=== PATIENT | female | born 1940 | race Two or more races ===

== ENCOUNTER 2022-05-28 15:03 | Inpatient (IN) | payer MEDICARE, OTHER ==
[~2022-05-28] VITALS: Ht 162.6 cm; Wt 82.3 kg
--- NOTE | 2022-05-28 15:13 | NUR ---
TECH AT BEDSIDE FOR EKG
--- NOTE | 2022-05-28 15:16 | NUR ---
PHLEB AT BEDSIDE FOR BLOOD DRAW
[2022-05-28] MEDS ORDERED: DULO20CA19 PO (15:42)
[2022-05-28] MEDS ORDERED: POLY15DR40 EACHEYE (15:42)
[2022-05-28] MEDS ORDERED: BISA10SU11 RC (15:42)
[2022-05-28] MEDS ORDERED: ACET1TAB23 PO (15:42)
[2022-05-28] MEDS ORDERED: ASPI-1420 PO (15:42)
[2022-05-28] MEDS ORDERED: MAGN400O6 PO (15:42)
[2022-05-28] MEDS ORDERED: GABA300C PO (15:42)
[2022-05-28] MEDS ORDERED: TURM500C9 PO (15:42)
[2022-05-28] MEDS ORDERED: CHOL100043 PO (15:42)
[2022-05-28] MEDS ORDERED: ATOR40TA PO (15:42)
[2022-05-28] MEDS ORDERED: AMLO-213 PO (15:42)
[2022-05-28] MEDS ORDERED: MULT-447 PO (15:42)
[2022-05-28] MEDS ORDERED: CARV3.122 PO (15:42)
[2022-05-28] MEDS ORDERED: SENN-261 PO (15:42)
[2022-05-28] MEDS ORDERED: DICL100G34 TD (15:42)
[2022-05-28] MEDS ORDERED: HYDR-3972 PO (15:42)
[2022-05-28] MEDS ORDERED: LOSA100T31 PO (15:42)
[2022-05-28] MEDS ORDERED: MAGN400T26 PO (15:42)
[2022-05-28] MEDS ORDERED: NITR0.4T48 SL (15:42)
[2022-05-28] MEDS ORDERED: ACET-868 PO (15:42)
[2022-05-28 15:45] LABS: BASOPHILS % (AUTO) 0.7 % (0.0-2.0); EOSINOPHILS % (AUTO) 3.5 % (0.0-6.0); HEMATOCRIT 44 % (33-45); HEMOGLOBIN 14.1 g/dL (11.5-14.8); LYMPHOCYTES # (AUTO) 1.5 K/uL (0.8-4.8); LYMPHOCYTES % (AUTO) 29.2 % (20.0-44.0); MEAN CORPUSCULAR HGB CONC 32 g/dl (31.0-36.0); MEAN CORPUSCULAR VOLUME 91 fL (82-100); MONOCYTES # (AUTO) 0.5 K/uL (0.1-1.30); NEUTROPHILS # (AUTO) 2.8 K/uL (1.8-8.9); NEUTROPHILS % (AUTO) 56.6 % (43.0-81.0); PLATELET COUNT (AUTO) 230 K/uL (150-450); RED BLOOD CELL COUNT(AUTO) 4.83 MIL/uL (4.0-5.2)
--- NOTE | 2022-05-28 15:58 | NUR ---
MOVE SHEET SUBMITTED.
[2022-05-28 16:02] LABS: CALCIUM, SERUM 9.3 mg/dL (8.5-10.1); CARBON DIOXIDE 28 mmol/L (21-32); CHLORIDE 105 mmol/L (98-107); CREATININE 0.9 mg/dL (0.6-1.3); GLUCOSE 149 mg/dL (74-106); POTASSIUM 3.3 mmol/L (3.5-5.1); SODIUM SERUM 140 mmol/L (136-145); UREA NITROGEN, BLOOD 22 mg/dL (7-18)
--- NOTE | 2022-05-28 16:09 | NUR ---
URINE SAMPLE COLLECTED AND SENT TO LAB
--- NOTE | 2022-05-28 16:34 | NUR ---
WINNIE HAMILTON DAUGHTER IN[facility] [phone]
[2022-05-28 16:53] LABS: BILIRUBIN,URINE NEGATIVE (NEGATIVE); COLOR,URINE YELLOW (YELLOW); LEUKOCYTE ESTERASE ,URINE NEGATIVE (NEGATIVE); NITRITE, URINE NEGATIVE (NEGATIVE); PH,URINE 6.5 (5.0-8.0); PROTEIN,URINE NEGATIVE (NEGATIVE); UGLUCOSE NEGATIVE (NEGATIVE); UROBILINOGEN,URINE 0.2 EU/dL (0.2)
[2022-05-28 17:43] LABS: BACTERIA,URINE 2+ /HPF (None Seen); SQUAMOUS EPITHELIAL CELL,UR Few /HPF (None Seen); WBC,URINE 0-2 /HPF (0-3)
[2022-05-28] MEDS ORDERED: BISACODYL SUPP (10 MG) 10 MG/SUPP.RECT SUPP.RECT RC PRN (18:00)
[2022-05-28] MEDS ORDERED: MAG HYDROX/AL HYDROX/SIMETH 30 ML UDC PO PRN (18:00)
[2022-05-28] MEDS ORDERED: POTASSIUM CHLORIDE 20 MEQ TAB.PRT.SR PO ONE ×2 (18:00→19:07)
[2022-05-28] MEDS ORDERED: ACETAMINOPHEN W/ CODEINE#3 1 EA TABLET PO PRN (18:00)
[2022-05-28] MEDS ORDERED: NITROGLYCERIN 0.4 MG/TAB BOTTLE SL PRN (18:00)
[2022-05-28] MEDS ORDERED: SENNOSIDES 8.6 MG TABLET PO PRN (18:00)
[2022-05-28] MEDS ORDERED: ONDANSETRON HCL/PF 4 MG/2 ML VIAL IVP PRN (18:00)
[2022-05-28] MEDS ORDERED: Z GUARD REMEDY 4 OZ OINT TP PRN (18:00)
[2022-05-28] MEDS ORDERED: HYDROCODONE/APAP 5/325MG TABLET PO PRN (18:00)
[2022-05-28] MEDS ORDERED: MAGNESIUM HYDROXIDE 30 ML UDC PO PRN ×2 (18:00)
[2022-05-28] MEDS ORDERED: ACETAMINOPHEN 325 MG TABLET PO PRN ×2 (18:00)
--- NOTE | 2022-05-28 18:21 | NUR ---
COVID SENT AND RESULTED
--- NOTE | 2022-05-28 19:08 | NUR ---
SMALLTALK DEVELOPER AT BEDSIDE
[2022-05-28 20:00] VITALS: BP 133/76
--- NOTE | 2022-05-28 20:20 | NUR ---
COMBINED RAIL OPERATOR NOTES RECEIVE PT FROM ER AWAKE AND ALERT X 2-3. ON ROOM AIR , NO SOB, NO SIGNS OF DISTRESS NOTED. IV SITE @ R WRIST#20G, CLEAN, INTACT & PATENT. SKIN ASSESSMENT DONE & PERFORMED. PHOTOS TAKEN. PT BELONGING WAS SIGNED BY PT. REORIENT THE PT TO THE ROOM & THE USE OF CALL LIGHT BUTTON. SAFETY PRECAUSTION IS MAINTAINED. BED AT LOW POSITION, SIDE RAILS UP X 2, BED ALARM IS ON, HOB ELEVATED, HEAD CALL LIGHT WITHIN REACH.
[2022-05-28 20:30] VITALS: BP 133/76
--- NOTE | 2022-05-28 20:35 | NUR ---
patient transferred to [facility] via acls
[2022-05-28] MEDS: ATORVASTATIN 40 MG TABLET PO SCH (21:55)
[2022-05-28] MEDS: IV NS 0.9% 1,000 ML IV PRN (21:59)
[2022-05-29] VITALS (7 sets, daily range): BP systolic 102–152; BP diastolic 52–89
--- NOTE | 2022-05-29 01:00 | NUR ---
RN NOTES PT IV SITE WAS NOTED RED. MULTIPLE ATTEMPT TO RE-INSERT UNSUCCESSFUL. INFORMED AND NOTIFY MD AND FURNACE PUNCHER FOR MIDLINE INSERTION. CHARGE NURSE IS AWARE & INFORMED. PT REFUSED FURTHER RE-INSERTION. PT REFUSED IV FLUIDS.
[2022-05-29 06:13] LABS: EOSINOPHILS % (AUTO) 3.5 % (0.0-6.0); HEMATOCRIT 42 % (33-45); HEMOGLOBIN 13.6 g/dL (11.5-14.8); LYMPHOCYTES # (AUTO) 0.9 K/uL (0.8-4.8); MEAN CORPUSCULAR HGB CONC 33 g/dl (31.0-36.0); MEAN CORPUSCULAR VOLUME 90 fL (82-100); MONOCYTES # (AUTO) 0.5 K/uL (0.1-1.30); MONOCYTES % (AUTO) 11.4 % (2.0-12.0); NEUTROPHILS # (AUTO) 1.6 K/uL (1.8-8.9); NEUTROPHILS % (AUTO) 39.7 % (43.0-81.0); PLATELET COUNT (AUTO) 231 K/uL (150-450); RED BLOOD CELL COUNT(AUTO) 4.64 MIL/uL (4.0-5.2); WHITE BLOOD COUNT (AUTO) 4.1 K/uL (4.3-11.0)
[2022-05-29 06:22] LABS: BASOPHILS % (AUTO) 24.4 % (0.0-2.0)
[2022-05-29 06:42] LABS: CALCIUM, SERUM 9.2 mg/dL (8.5-10.1); CARBON DIOXIDE 26 mmol/L (21-32); CHLORIDE 109 mmol/L (98-107); CREATININE 0.7 mg/dL (0.6-1.3); GLUCOSE 108 mg/dL (74-106); MAGNESIUM 2.1 mg/dL (1.8-2.4); PHOSPHORUS 3.3 mg/dL (2.5-4.9); POTASSIUM 4.1 mmol/L (3.5-5.1); SODIUM SERUM 143 mmol/L (136-145); UREA NITROGEN, BLOOD 13 mg/dL (7-18)
--- NOTE | 2022-05-29 07:23 | NUR ---
RN CLOSING NOTES PT AWAKE AND RESTING COMFORTABLY IN BED. RESPONSIVE AND FOLLOWS VERBAL COMMAND A/O X 2-3. NO S/S OF RESPIRATORY DISTRESS NOTED. WAITING FOR MID LINE. PT IS IN PUREWRICK, KEPT PT CLEAN, DRY & COMFORTABLE. SAFETY MEASURES IN MAINTAINED WITH BED IN LOWEST AND LOCKED POSITION. BED ALARM ON. CALL LIGHT AND TABLE WITHIN REACH, SIDE RAILS UP X 2. WILL ENDORSE TO THE NEXT SHIFT FOR THE CONTINUITY OF CARE.
--- NOTE | 2022-05-29 07:33 | NUR ---
WOUND CARE CONSULT: PT PRESENTS WITH LOWER LEG EDEMA, PRESENT ON ADMISSION. PT IS USING PURE WICK SYSTEM FOR URINARY INCONTINENCE. PT ABLE TO ASSIST WITH TURNING AND REPOSITIONING IN BED. DISCUSSED SKIN PROTECTION WITH NURSING STAFF. MD IN AGREEMENT WITH PLAN OF CARE.
--- NOTE | 2022-05-29 08:08 | NUR ---
RN OPENING NOTES PT AWAKE IN BED A/O X 2-3. ABLE TO MAKE NEEDS KNOWN. NO S/S OF RESPIRATORY DISTRESS NOTED. NO IV SITE NOTED, WAITING FOR MID LINE. PT IS IN PUREWRICK, KEPT PT CLEAN, DRY & COMFORTABLE. BILATERAL LEG EDEMA NOTED, KEPT ELEVATED. SAFETY MEASURES IN MAINTAINED WITH BED IN LOWEST AND LOCKED POSITION. BED ALARM ON. CALL LIGHT AND TABLE WITHIN REACH, SIDE RAILS UP X 2. WILL CONTINUE TO MONITOR.
[2022-05-29] MEDS: MAGNESIUM OXIDE 400 MG TABLET PO SCH (08:20)
[2022-05-29] MEDS: DULOXETINE HCL 20 MG CAPSULE.DR PO SCH (08:20)
[2022-05-29] MEDS: ASPIRIN EC 81 MG TABLET.DR PO SCH (08:20)
[2022-05-29] MEDS: GABAPENTIN 300 MG CAPSULE PO SCH ×3 (08:20→16:44)
[2022-05-29] MEDS: MULTIVIT W/MINERALS 1 TAB TABLET PO SCH (08:20)
[2022-05-29] MEDS: LOSARTAN POTASSIUM 50 MG TABLET PO SCH (08:21)
[2022-05-29] MEDS: CARVEDILOL 3.125 MG TABLET PO SCH ×2 (08:21→16:45)
[2022-05-29] MEDS: AMLODIPINE BESYLATE 10 MG TABLET PO SCH (08:21)
[2022-05-29 09:46] LABS: THYROID STIMULATING HORMONE 2.298 uIU/mL (0.358-3.74)
--- NOTE | 2022-05-29 11:00 | NUR ---
RN NOTES ORTHOSTATIC BP TAKEN WITH LYING AND SITTING POSITION. PATIENT UNABLE TO STAND STILL. LYIN/64 SITTIN/78.
--- NOTE | 2022-05-29 18:12 | NUR ---
RN CLOSING NOTES PT AWAKE IN BED A/O X 2-3. ABLE TO MAKE NEEDS KNOWN. NO S/S OF RESPIRATORY DISTRESS NOTED. WITH IV ACCESS ON RT UPPER MIDLINE 20G RUNNING WITH NS AT 75ML/HR, PATENT AND INTACT. TURNED AND REPOSITIONED EVERY 2 HOURS AND TOLERATED TO PROMOTE PROPER CIRCULATION AND COMFORT. PT IS IN PUREWRICK, KEPT PT CLEAN, DRY & COMFORTABLE. BILATERAL LEG EDEMA NOTED, KEPT ELEVATED. ALL DUE MEDS GIVEN. SAFETY MEASURES IN MAINTAINED WITH BED IN LOWEST AND LOCKED POSITION. BED ALARM ON. CALL LIGHT AND TABLE WITHIN REACH, SIDE RAILS UP X 2. WILL CONTINUE TO MONITOR.
--- NOTE | 2022-05-29 19:15 | NUR ---
RN opening notes Pt is resting in bed comfortably. Pt is alert and orientedx2-3. Pt speaks Romansh and able to make needs known. On room air. No SOB. No S/s of distress noted. Tele monitor showed SR. R uppermidline is clean, intact and infusing well NS@ 75 ml/hr. Purewick is inplaced and draining yellow urine. safety precautions is maintained. bed at low position, brakes locked, side rails upX2, hob elevated, bed alarm is on and call light is within reach. Will continue to monitor.
[2022-05-29] MEDS: ATORVASTATIN 40 MG TABLET PO SCH (21:57)
[2022-05-29] MEDS: IV NS 0.9% 1,000 ML IV PRN (22:58)
[2022-05-30] VITALS (8 sets, daily range): BP systolic 118–146; BP diastolic 64–86
[2022-05-30 06:37] LABS: BASOPHILS % (AUTO) 0.4 % (0.0-2.0); EOSINOPHILS % (AUTO) 2.5 % (0.0-6.0); HEMATOCRIT 38 % (33-45); HEMOGLOBIN 12.8 g/dL (11.5-14.8); MEAN CORPUSCULAR HGB CONC 33 g/dl (31.0-36.0); MEAN CORPUSCULAR VOLUME 90 fL (82-100); MONOCYTES # (AUTO) 0.5 K/uL (0.1-1.30); MONOCYTES % (AUTO) 8.6 % (2.0-12.0); NEUTROPHILS # (AUTO) 4.3 K/uL (1.8-8.9); NEUTROPHILS % (AUTO) 72.5 % (43.0-81.0); PLATELET COUNT (AUTO) 219 K/uL (150-450); RED BLOOD CELL COUNT(AUTO) 4.27 MIL/uL (4.0-5.2); WHITE BLOOD COUNT (AUTO) 5.9 K/uL (4.3-11.0)
--- NOTE | 2022-05-30 06:42 | NUR ---
CLOSING NOTES PT ASLEEP AND RESTING COMFORTABLY IN BED IN ROOM AIR, MONEGASQUE SPEAKING. RESPONSIVE AND FOLLOWS VERBAL COMMAND. A/O X 2-3. NO S/S OF RESPIRATORY DISTRESS NOTED. ON TELE MONITOR, SINUS RYTHYM HR 75. IV SITE RIGHT UPPER MIDLINE #20g, RUNNING AT NS 75 MLS/HR. KEPT CLEAN, DRY AND COMFORTABLE. SAFETY MEASURES MAINTAINED WITH BED AT ITS LOWEST AND LOCKED POSITION. BED ALARM ON. CALL LIGHT AND TABLE WITHIN REACH. SIDE RAILS UP X 2 WILL ENDORSE TO THE NEXT SHIFT FOR CONTINUITY OF CARE.
[2022-05-30 06:56] LABS: CALCIUM, SERUM 8.6 mg/dL (8.5-10.1); CARBON DIOXIDE 26 mmol/L (21-32); CHLORIDE 106 mmol/L (98-107); CREATININE 0.7 mg/dL (0.6-1.3); GLUCOSE 96 mg/dL (74-106); POTASSIUM 3.7 mmol/L (3.5-5.1); SODIUM SERUM 140 mmol/L (136-145); UREA NITROGEN, BLOOD 16 mg/dL (7-18)
--- NOTE | 2022-05-30 07:27 | NUR ---
GRAVITY PROSPECTING OBSERVER OPENING NOTE: PT RECEIVED IN BED, AWAKE. A/O X 3. ON RA, TOLERATED WELL. WITH NO SIGNS OF ACUTE RESPIRATORY DISTRESS. ABLE TO MAKE NEEDS KNOWN. NO C/O PAIN AND DISCOMFORT AT THIS TIME. WITH MIDLINE IN THE HELENE #20G, C/D/I. WITH RN AMBULATORY IN SR, HR-94. ON PUREWICK WITH YELLOW URINE. NOTED WITH LEFT SIDED BODY WEAKNESS. SAFETY MEASURE IN PLACE: CALL LIGHT AND TRAY TABLE WITHIN REACH, BED LOCKED AND IN LOWEST POSITION, SIDE RAILS X 3. WILL CONTINUE TO MONITOR.
[2022-05-30] MEDS: MAGNESIUM OXIDE 400 MG TABLET PO SCH (08:45)
[2022-05-30] MEDS: MULTIVIT W/MINERALS 1 TAB TABLET PO SCH (08:46)
[2022-05-30] MEDS: DULOXETINE HCL 20 MG CAPSULE.DR PO SCH (08:46)
[2022-05-30] MEDS: ASPIRIN EC 81 MG TABLET.DR PO SCH (08:46)
[2022-05-30] MEDS: GABAPENTIN 300 MG CAPSULE PO SCH ×3 (08:46→16:29)
[2022-05-30] MEDS: LOSARTAN POTASSIUM 50 MG TABLET PO SCH (08:46)
[2022-05-30] MEDS: AMLODIPINE BESYLATE 10 MG TABLET PO SCH (08:47)
[2022-05-30] MEDS: CARVEDILOL 3.125 MG TABLET PO SCH ×2 (08:47→16:30)
[2022-05-30] MEDS: IV NS 0.9% 1,000 ML IV PRN (16:59)
--- NOTE | 2022-05-30 18:36 | NUR ---
MS RN CLOSING NOTE: PT IN BED, RESTING. A/O X 3, ON RA, NO SIGNS OF ACUTE RESPIRATORY DISTRESS. ABLE TO MAKE NEEDS KNOWN. NO C/O PAIN AND DISCOMFORT WITHIN THE SHIFT. WITH MIDLINE IN THE HELENE #20G WITH IVF OF NS AT 75ML/HR, C/D/I. ON PUREWICK WITH YELLOW URINE. NEEDS ATTENDED. SAFETY MEASURE IN PLACE: CALL LIGHT AND TRAY TABLE WITHIN REACH, BED LOCKED AND IN LOWEST POSITION, SIDE RAILS X 3. WILL ENDORSE TO GAS DISTRIBUTION SUPERVISOR NURSE.
--- NOTE | 2022-05-30 19:59 | NUR ---
RN OPENING NOTE PATIENT AWAKE IN BED. A/OX2. NO S/S OF DISTRESS, BREATHING WITHOUT DIFFICULTY ON ROOM AIR. HELENE MIDLINE #20 INTACT AND PATENT W/ NS 75ML/HR. SAFETY MEASURES IN PLACE: BED LOCKED AND AT LOWEST POSITION, RAILS UP X2, CALL HARRELL WITHIN REACH. WILL CONTINUE TO MONITOR PATIENT.
[2022-05-30] MEDS: ATORVASTATIN 40 MG TABLET PO SCH (21:31)
[2022-05-31] MEDS: IV NS 0.9% 1,000 ML IV PRN (06:15)
--- NOTE | 2022-05-31 06:39 | NUR ---
RN CLOSING NOTE PATIENT ASLEEP IN BED. A/OX3. NO S/S OF DISTRESS, BREATHING WITHOUT DIFFICULTY ON ROOM AIR. HELENE MIDLINE #20 INTACT AND PATENT W/ NS 75ML/HR. SAFETY MEASURES IN PLACE: BED LOCKED AND AT LOWEST POSITION, RAILS UP X2, CALL HARRELL WITHIN REACH. WILL CONTINUE TO MONITOR PATIENT.
--- NOTE | 2022-05-31 07:25 | NUR ---
MS RN OPENING NOTE RECEIVED PATIENT AWAKE IN BED. A/OX2. AZER[place]IJ[place] SPEAKER, UNDERSTANDS SOME GE[place]GI[place], ON ROOM AIR WITH NO SOB, NO S/S OF DISTRESS. IV ACCESS ON HELENE MIDLINE #20 INTACT AND PATENT W/ NS 75ML/HR. ON PUREWICK DRAINING LIGHT YELLOW URINE. SAFETY MEASURES IN PLACE: BED LOCKED AND AT LOWEST POSITION, RAILS UP X2, CALL HARRELL WITHIN REACH. WILL CONTINUE TO MONITOR PATIENT.
[2022-05-31 08:00] VITALS: BP 138/73
[2022-05-31] MEDS: MULTIVIT W/MINERALS 1 TAB TABLET PO SCH (09:11)
[2022-05-31] MEDS: LOSARTAN POTASSIUM 50 MG TABLET PO SCH (09:12)
[2022-05-31] MEDS: AMLODIPINE BESYLATE 10 MG TABLET PO SCH (09:12)
[2022-05-31] MEDS: GABAPENTIN 300 MG CAPSULE PO SCH ×2 (09:12→12:53)
[2022-05-31] MEDS: MAGNESIUM OXIDE 400 MG TABLET PO SCH (09:12)
[2022-05-31 09:13] VITALS: BP 138/73
[2022-05-31] MEDS: CARVEDILOL 3.125 MG TABLET PO SCH (09:13)
[2022-05-31] MEDS: DULOXETINE HCL 20 MG CAPSULE.DR PO SCH (09:13)
[2022-05-31] MEDS: ASPIRIN EC 81 MG TABLET.DR PO SCH (09:13)
--- NOTE | 2022-05-31 14:45 | NUR ---
RN MS DISCHARGE NOTE PT DISCHARGED TO [facility] IN STABLE CONDITION. PT AOX4, VINCENTIAN SPEAKING, ABLE TO MAKE NEEDS KNOWN. ON ROOM AIR WITHOUT ANY DIFFICULTY, NO SOB NOTED, NOT IN ANY FORM OF ANY RESPIRATORY DISTRESS. VITAL SIGNS TAKEN, STABLE, AND RECORDED. PT'S SKIN IS INTACT, SAME EDEMA NOTED ON BILATERAL LEGS, PATIENT REFUSED PHOTO TAKING, DENIES PAIN NOR DISCOMFORT AT THIS TIME. ALL BELONGINGS ACCOUNTED FOR, FORM SIGNED. DISCHARGE INSTRUCTIONS RELAYED TO LIDIA OROZCO FROM [facility], MED RECON ENDORSED. IV ACCESS IN HELENE ML G#18 REMOVED, NO NOTED BLEEDING, PRESSURE GAUZE APPLIED. PT LEFT THE UNIT AT 1436 VIA GURNEY ACCOMPANIED BY 2 AUTOMATION CONSULTANT. CHARGE NURSE AND MD AWARE OF THE DISCHARGE.
== END 2022-05-31 14:45 | DRG 640 ==
LOC: ER 15:07 → TELE 19:31 → MED 05-31 00:55
PROVIDERS: ADMIT Internal Medicine; ATTEND Internal Medicine
PROC: 05HB33Z Insertion of Infusion Device into Right Basilic Vein, Percutaneous Approach (ICD-10-PCS; principal; 2022-05-29)
DX: E86.0 Dehydration (principal); N17.0 Acute kidney failure with tubular necrosis; I69.354 Hemiplegia and hemiparesis following cerebral infarction affecting left non-dominant side; E87.6 Hypokalemia; Z20.822 Contact with and (suspected) exposure to COVID-19; E78.5 Hyperlipidemia, unspecified; I10 Essential (primary) hypertension; Z79.82 Long term (current) use of aspirin; Z79.899 Other long term (current) drug therapy; Z66 Do not resuscitate; G62.9 Polyneuropathy, unspecified; R73.9 Hyperglycemia, unspecified
CPT/HCPCS: 36410; 36415; 70450-TC; 71045-TC; 80048-TC; 80061-TC; 81001; 82962-TC; 83735-TC; 83880; 84100-TC; 84439-TC; 84443-TC; 84484-TC; 85025-TC; 87081-TC; 87086-TC; 93307-TC; 93880-TC; 97112-TC; 97530-TC; C9803; G0378; J7030; J7120